=== PATIENT | male | born 1985 | race Caucasian/White ===

== ENCOUNTER 2017-04-21 10:33 | Emergency (ER) | payer MEDICAID | END 2017-04-21 11:48 | disposition home or self-care (01) | LOC: D.ER 10:33 | DX: L03.211 Cellulitis of face (principal); R21 Rash and other nonspecific skin eruption ==

== ENCOUNTER 2019-09-05 22:18 | Emergency (ER) | payer MEDICAID ==
[~2019-09-05] VITALS: Ht 167.6 cm; Wt 63.6 kg
[2019-09-05 22:22] VITALS: Ht 167.6 cm; Wt 63.6 kg
[2019-09-05] MEDS ORDERED: CYCLOBENZAPRINE5 MG PO (23:32)
[2019-09-05] MEDS ORDERED: VOLTAREN75 MG PO (23:32)
[2019-09-05 23:51] VITALS: BP 132/68
== END 2019-09-05 23:50 | disposition home or self-care (01) ==
LOC: D.ER 22:18
DX: R51 Headache (principal); V89.2XXA Person injured in unspecified motor-vehicle accident, traffic, initial encounter